=== PATIENT | male | born 1950 | race Caucasian/White ===

== ENCOUNTER 2016-07-30 08:53 | Outpatient (CLI) | payer MEDICARE, OTHER ==
[2014-11-30 17:47] VITALS: BP 153/90
[2016-07-30 09:49] LABS: eGFR (African) > 60; eGFR (Non-African) > 60
== END 2016-07-30 09:03 ==
LOC: LAB 08:53
PROVIDERS: ATTEND Internal Medicine Nephrology
DX: E78.2 Mixed hyperlipidemia (principal); I10 Essential (primary) hypertension; M10.00 Idiopathic gout, unspecified site
CPT/HCPCS: 36415; 80053; 80061

== ENCOUNTER 2016-12-04 16:31 | Outpatient (CLI) | payer MEDICARE, OTHER ==
[2014-11-30 17:47] VITALS: BP 153/90
[2016-12-04 16:45] LABS: BASOPHILS % 0.7 (0.0-1.5); EOSINOPHILS % 2.7 % (0.0-6.8); MEAN CORPUSCULAR VOLUME 96.4 fl (80.0-100.0); MONOCYTES % 7.4 % (0.0-11.0); NEUTROPHILS # 4.9 # k/uL (1.4-7.7)
[2016-12-04 17:23] LABS: eGFR (African) > 60; eGFR (Non-African) 59
== END 2016-12-04 16:40 ==
LOC: RT 16:31
PROVIDERS: ATTEND Family Medicine
DX: I10 Essential (primary) hypertension (principal)
CPT/HCPCS: 36415; 80053; 85025

== ENCOUNTER 2017-02-19 09:23 | Outpatient (CLI) | payer MEDICARE, OTHER ==
[2014-11-30 17:47] VITALS: BP 153/90
[2017-02-19 10:53] LABS: eGFR (African) > 60; eGFR (Non-African) > 60
== END 2017-02-19 09:24 ==
LOC: LAB 09:23
PROVIDERS: ATTEND Internal Medicine Nephrology
DX: E78.2 Mixed hyperlipidemia (principal); I10 Essential (primary) hypertension; M10.00 Idiopathic gout, unspecified site; Z68.30 Body mass index [BMI] 30.0-30.9, adult
CPT/HCPCS: 36415; 80053; 80061

== ENCOUNTER 2017-07-14 14:56 | Outpatient (CLI) | payer MEDICARE, OTHER ==
[2014-11-30 17:47] VITALS: BP 153/90
--- NOTE | 2017-07-14 16:44 | Diagnostic Imaging Report ---
ANANTH LIVINGSTON [facility] [address] [facility] [address] [address] Report Submission Date: Jul 14, 2017 4:12:46 PM CDT Patient Study Name: SHANNAN MURRAY Date: Jul 14, 2017 3:34:44 PM CDT Modality Type: DX Gender: M Description: LOWER EXTREMITY : 48 Institution: [facility] Physician: ANANTH LIVINGSTON Examination: Plain film left foot History: PAIN WITH NO KNOWN INJURY X 3 WEEKS (Hx) Findings: 3 views of the left foot demonstrates normal cortical margins. Articular degenerative changes. No fracture or dislocation. Calcaneal spurs. No soft tissue swelling. No joint effusion. Impression: Degenerative changes. No acute osseous process. Electronically signed on Jul 14, 2017 4:12:46 PM CDT by: Michel MTZ
--- NOTE | 2017-07-14 16:57 | Diagnostic Imaging Report ---
ANANTH LIVINGSTON [facility] [address] [facility] [address] [address] Report Submission Date: Jul 14, 2017 4:53:49 PM CDT Patient Study Name: SHANNAN MURRAY Date: Jul 14, 2017 4:22:31 PM CDT Modality Type: DX Gender: M Description: LOWER EXTREMITY : 48 Institution: [facility] Physician: ANANTH LIVINGSTON Examination: Plain film left ankle History: ACUTE LEFT ANKLE PAIN X 3 WEEKS (Hx) Findings: 3 views of the left ankle demonstrates normal cortical margins. No fracture or dislocation. Talar dome is intact. Calcaneal spurs. No soft tissue swelling. No joint effusion. Impression: Calcaneal spurs. No acute osseous process. Electronically signed on Jul 14, 2017 4:53:49 PM CDT by: Michel MTZ
== END 2017-07-14 14:58 ==
LOC: RAD 14:56
PROVIDERS: ATTEND Family Medicine
DX: M25.572 Pain in left ankle and joints of left foot (principal)
CPT/HCPCS: 73610; 73630

== ENCOUNTER 2017-09-10 09:58 | Outpatient (CLI) | payer MEDICARE, OTHER ==
[2014-11-30 17:47] VITALS: BP 153/90
[2017-09-10 10:31] LABS: eGFR (African) > 60; eGFR (Non-African) > 60
[2017-09-10 10:32] LABS: BASOPHILS % 0.6 (0.0-1.5); EOSINOPHILS % 2.5 % (0.0-6.8); MEAN CORPUSCULAR HEMOGLOBIN 34.2 pg (28.0-34.0); MEAN CORPUSCULAR VOLUME 99.2 fl (80.0-100.0); MONOCYTES % 6.8 % (0.0-11.0); NEUTROPHILS # 3.8 # k/uL (1.4-7.7)
== END 2017-09-10 10:00 ==
LOC: LAB 09:58
PROVIDERS: ATTEND Internal Medicine Nephrology
DX: E78.2 Mixed hyperlipidemia (principal); I10 Essential (primary) hypertension; M10.00 Idiopathic gout, unspecified site
CPT/HCPCS: 36415; 80053; 80061; 84550; 85025

== ENCOUNTER 2017-12-21 18:12 | Emergency (ER) | payer MEDICARE, OTHER ==
[2017-12-21] MEDS ORDERED: DIPH,PERTUSS(ACELL),TET VAC/PF 0.5 ML DISP.SYRIN IM ONE (18:28)
--- NOTE | 2017-12-21 18:39 | ED Physician Documentation ---
General Adult - HPI Stated Complaint: "I cut my leg about 1 hr ago" Chief Complaint: Laceration/Recheck/Suture Additional Information: Patient presents to ED after cutting his left leg with a knife while field dressing a deer about an hour ago. He is unsure when his last tetanus vaccination. Onset: hours (1) Timing: still present - ROS CONST: no problems EYES/ENT: none CVS/RESP: none GI/: none MS/SKIN/LYMPH: none - PAST HX Past History: none Other History: none Surgeries/Procedures: none Allergies/Adverse Reactions: Allergies Allergy/AdvReac Type Severity Reaction Status Date / Time NSAIDS (Non-Steroidal Allergy Rash Verified 12/21/17 18:33 Anti-Inflamma Penicillins Allergy Verified 12/21/17 18:33 Home Medications: Ambulatory Orders Medication Instructions Recorded Atorvastatin Calcium [Lipitor] 60 mg PO 11/30/14 Metoprolol Succinate [Toprol Xl] 50 mg PO DAILY #30 tab.er.24h 11/30/14 Nifedipine [Nifedipine ER] 60 mg PO 11/30/14 Omeprazole 20 mg PO 11/30/14 - SOCIAL HX Smoking History: non-smoker Alcohol Use: none Drug Use: none - FAMILY HX Family History: No - VITAL SIGNS Vital Signs: Vital Signs Temp Pulse Resp BP Pulse Ox 97.5 F L 68 16 145/78 99 12/21/17 18:28 12/21/17 18:28 12/21/17 18:28 12/21/17 18:28 12/21/17 18:28 - REVIEWED ASSESSMENTS Nursing Assessment Reviewed: Yes Vitals Reviewed: Yes Procedures Wound Length: 1cm ED Results Lab/Radiology - Orders Orders: ED Orders Category Date Time Status Apply Steri-Strips 1T Care 12/21/17 18:28 Active Diph,Pertuss(Acell),Tet Vac/Pf [Adacel] Med 12/21/17 18:28 Discontinued 0.5 ml IM .ONCE ONE General Adult Physical Exam - PHYSICAL EXAM GENERAL APPEARANCE: no distress EENT: MADDIE NECK: supple RESPIRATORY: no resp distress CVS: reg rate & rhythm, heart sounds normal ABDOMEN: soft, normal bowel sounds BACK: No: no CVA tenderness SKIN: warm/dry EXTREMITIES: non-tender NEURO: oriented X3 Discharge Clincal Impression: Laceration Referrals: Gray Koenig MD [Primary Care Provider] - 2 Days Condition: Stable Disposition: 01 HOME, SELF-CARE Decision to Admit: NO Date of Decison to Admit: 12/21/17 Decision Time: 18:54
[2017-12-21 19:07] VITALS: BP 145/58
== END 2017-12-21 19:05 | disposition home or self-care (01) ==
LOC: ED 18:12
DX: S71.112A Laceration without foreign body, left thigh, initial encounter (principal); W26.8XXA Contact with other sharp object(s), not elsewhere classified, initial encounter; Y92.9 Unspecified place or not applicable
CPT/HCPCS: 12001; 90471; 90715; 99282

== ENCOUNTER 2018-04-13 09:24 | Outpatient (CLI) | payer MEDICARE, OTHER ==
[2018-04-13 09:48] LABS: BASOPHILS % 1.2 (0.0-1.5); EOSINOPHILS % 2.8 % (0.0-6.8); MEAN CORPUSCULAR HEMOGLOBIN 32.9 pg (28.0-34.0)
[2018-04-13 09:49] LABS: NEUTROPHILS # 4.6 # k/uL (1.4-7.7)
[2018-04-13 09:59] LABS: eGFR (Non-African) 54
== END 2018-04-13 09:26 ==
LOC: LAB 09:24
PROVIDERS: ATTEND Internal Medicine Nephrology
DX: E78.2 Mixed hyperlipidemia (principal); I10 Essential (primary) hypertension; M10.00 Idiopathic gout, unspecified site; G47.30 Sleep apnea, unspecified
CPT/HCPCS: 36415; 80053; 80061; 85025

== ENCOUNTER 2018-08-24 10:57 | Outpatient (CLI) | payer MEDICARE, OTHER ==
[2018-08-24 11:09] LABS: BASOPHILS % 0.4 % (0.0-1.5); NEUTROPHILS # 7.5 # k/uL (1.4-7.7)
[2018-08-24 11:25] LABS: eGFR (Non-African) > 60
--- NOTE | 2018-08-24 18:03 | Diagnostic Imaging Report ---
ANANTH LIVINGSTON [facility] [address] [address] Report Submission Date: Aug 24, 2018 4:30:16 PM CDT Patient Study Name: SHANNAN MURRAY Date: Aug 24, 2018 11:04:08 AM CDT Modality Type: DX Gender: M Description: FINGER 2 VIEWS OR MORE : 48 Institution: [facility] Physician: ANANTH LIVINGSTON Left fingers, three views History: Thumb pain. Findings: The osseous structures are intact without acute fracture. The joint spacing and alignment are normal. No soft tissue abnormality. Impression: 1. No acute osseous abnormality. Electronically signed on Aug 24, 2018 4:30:16 PM CDT by: Remington MTZ
== END 2018-08-24 11:00 ==
LOC: LAB 10:57
PROVIDERS: ATTEND Family Medicine
DX: R10.84 Generalized abdominal pain (principal)
CPT/HCPCS: 36415; 73140; 80053; 83690; 85025

== ENCOUNTER 2018-09-21 16:01 | Outpatient (CLI) | payer MEDICARE, OTHER ==
[2018-09-13 21:59] VITALS: BP 126/72
[2018-09-21 16:14] LABS: BASOPHILS % 0.4 % (0.0-1.5); NEUTROPHILS # 5.6 # k/uL (1.4-7.7)
[2018-09-21 16:55] LABS: eGFR (Non-African) > 60
== END 2018-09-21 16:03 ==
LOC: LAB 16:01
PROVIDERS: ATTEND Family Medicine
DX: D50.0 Iron deficiency anemia secondary to blood loss (chronic) (principal); R74.0 Nonspecific elevation of levels of transaminase and lactic acid dehydrogenase [LDH]
CPT/HCPCS: 36415; 80053; 85025

== ENCOUNTER 2018-10-16 08:33 | Outpatient (CLI) | payer MEDICARE, OTHER ==
[2018-09-13 21:59] VITALS: BP 126/72
[2018-10-16 08:55] LABS: BASOPHILS % 0.5 % (0.0-1.5); NEUTROPHILS # 3.8 # k/uL (1.4-7.7)
[2018-10-16 09:26] LABS: HDL 44 mg/dL (>40); eGFR (Non-African) > 60
== END 2018-10-16 08:40 ==
LOC: LAB 08:33
PROVIDERS: ATTEND Internal Medicine Nephrology
DX: E78.2 Mixed hyperlipidemia (principal); I10 Essential (primary) hypertension; M10.00 Idiopathic gout, unspecified site; G47.30 Sleep apnea, unspecified
CPT/HCPCS: 36415; 80053; 80061; 84550; 85025